=== PATIENT | male | born 1940 | race African-American/Black ===

== ENCOUNTER 2016-07-20 16:15 | Inpatient (IN) | payer MEDICARE, MEDICAID ==
[~2016-07-20] VITALS: Ht 175.3 cm; Wt 82.6 kg
[~2016-07-20 16:15] MED LIST: ALBUTEROL INH; ASPI-1035 PO; DOCU250C69 PO; ENAL5TAB PO; FOLI-43 PO; HYDR-523 PO; IPRATROPIUM INH; KEPPSOL PO; TYLENOL PO; [UNRECOGNIZED DRUG - OTHER] PO
[2016-07-20] MEDS ORDERED: LORA0.5T2 PO (18:07)
[2016-07-20] MEDS ORDERED: CRANBERRY (18:07)
[2016-07-20] MEDS ORDERED: CLON0.1T PO (18:07)
[2016-07-20] MEDS ORDERED: BISA-81 PO (18:07)
[2016-07-20] MEDS ORDERED: SODIUM CHLORIDE 0.9% 1,000 ML IV ONE (18:27)
[2016-07-20] MEDS ORDERED: PANTOPRAZOLE SODIUM 40 MG/VIAL IV STA (18:27)
[2016-07-20] MEDS ORDERED: LORAZEPAM 2MG/ML CPJ IV ONE ×2 (19:00→20:30)
[2016-07-20 19:05] LABS: BASOPHILS % 0.4 % (0.0-2.0); EOSINOPHILS % 0.7 % (0.0-5.0); HEMATOCRIT. 40.5 % (42.0-52.0); HEMOGLOBIN. 13.5 g/dL (14.0-18.0); LYMPHOCYTES % 18.9 % (20.0-50.0); MEAN CORPUSCULAR HEMOGLOBIN 31.2 pg (28.0-32.0); MEAN CORPUSCULAR HGB CONC 33.2 g/dL (31.0-37.0); MEAN CORPUSCULAR VOLUME 93.9 fL (80.0-94.0); MEAN PLATELET VOLUME 8.7 fl (7.4-10.4); MONOCYTES % 5.8 % (2.0-8.0); NEUTROPHILS % 74.2 % (40.0-76.0); PLATELET 163 x1000/uL (130-400); RED BLOOD CELL COUNT 4.31 mill/uL (4.7-6.1); RED CELL DISTRIBUTION WIDTH 12.3 % (11.6-14.6); WHITE BLOOD COUNT 9.7 x1000/uL (4.5-11.0)
[2016-07-20 19:13] LABS: INR 1.1; PARTIAL THROMBOPLASTIN TIME 24.7 sec (24.0-34.0); PROTHROMBIN TIME 11.6 sec
[2016-07-20 19:21] LABS: ALANINE AMINOTRANSFERASE 15 IU/L (13-61); ALBUMIN 3.2 g/dL (3.4-5.0); ANION GAP 14; CALCIUM 8.3 mg/dL (8.5-10.1); CARBON DIOXIDE 24 mEq/L (21-32); CHLORIDE 108 mEq/L (98-107); INDEX HEMOLYSI 2 (1-3); INDEX ICTERIC 1 (1-4); INDEX LIPEMIC 1 (1-3); LIPASE 91 IU/L (73-393); TROPONIN I < 0.02 ng/mL (0.00-0.04); UREA NITROGEN BLOOD 26 mg/dL (7-21); eGFR 51 mL/min (>60)
[2016-07-20 20:28] LABS: CLARITY URINE CLEAR (CLEAR); COLOR URINE YELLOW (YELLOW); GLUCOSE URINE NEGATIVE (NEGATIVE); KETONES URINE NEGATIVE (NEGATIVE); LEUKOCYTE ESTERASE URINE NEGATIVE (NEGATIVE); NITRITE URINE NEGATIVE (NEGATIVE); OCCULT BLOOD URINE NEGATIVE (NEGATIVE); PROTEIN URINE 1+ (NEGATIVE); SPECIFIC GRAVITY URINE 1.024 (1.005-1.030); UROBILINOGEN URINE 0.2 E.U./dL (0.2-1.0)
[2016-07-20 20:41] LABS: BACTERIA URINE TRACE; RBC URINE NONE SEEN /hpf (0-2); SQUAMOUS EPITHELIAL CELL URINE RARE /lpf (RARE/1+); WBC URINE NONE SEEN /hpf (0-2)
[2016-07-20 21:20] LABS: LACTIC ACID 2.2 mmol/L (0.4-2.0)
[2016-07-20] MEDS ORDERED: SODIUM CHLORIDE 0.45% 1,000 ML IV SCH (23:46)
[2016-07-21] VITALS (7 sets, daily range): BP systolic 116–198; BP diastolic 73–112
[2016-07-21] MEDS ORDERED: NA PHOS,M-B/NA PHOS,DI-BA ENEMA 118ML PR PRN
[2016-07-21] MEDS ORDERED: HYDROMORPHONE HCL/PF 2MG/ML CPJ IV PRN
[2016-07-21] MEDS ORDERED: DIPHENHYDRAMINE 50MG/ML VIAL IV PRN
[2016-07-21] MEDS ORDERED: LORAZEPAM 2MG/ML CPJ IV PRN
[2016-07-21] MEDS ORDERED: ONDANSETRON HCL 4MG/2ML VIAL IV PRN
[2016-07-21] MEDS ORDERED: GUAIFENESIN 200MG/10ML SUGAR FREE UDC PO PRN
[2016-07-21] MEDS ORDERED: DOCUSATE SODIUM 100MG CAPSULE PO PRN
[2016-07-21] MEDS ORDERED: DEXTROSE 50% WATER 50ML SYRINGE IV PRN (01:15)
[2016-07-21] MEDS ORDERED: HYDROCODONE/ACETAMINOPHEN 5/325MG TABLET PO PRN ×2 (01:30)
[2016-07-21] MEDS ORDERED: ACETAMINOPHEN 325MG TABLET PO PRN ×2 (01:30)
[2016-07-21] MEDS ORDERED: IPRATROPIUM/ALBUTEROL 0.5-3(2.5)MG/3ML NEB HHN PRN (01:30)
[2016-07-21] MEDS ORDERED: DOCUSATE SODIUM 250MG CAPSULE PO PRN (01:30)
[2016-07-21] MEDS ORDERED: MAGNESIUM/ALUMINUM HYDROXIDE/SIMETHICONE 30ML UDC PO PRN ×2 (01:30)
[2016-07-21] MEDS: CLONIDINE 0.1MG TABLET PO PRN ×2 (01:40→12:57)
[2016-07-21] MEDS: BLOOD SUGAR DIAGNOSTIC STRIP TEST SCH ×4 (06:24→21:00)
[2016-07-21] MEDS: INSULIN LISPRO 100 UNITS/ML SUBCUT SCH ×4 (06:24→21:00)
[2016-07-21 07:03] LABS: BASOPHILS % 0.6 % (0.0-2.0); EOSINOPHILS % 3.7 % (0.0-5.0); HEMATOCRIT. 35.1 % (42.0-52.0); HEMOGLOBIN. 11.3 g/dL (14.0-18.0); LYMPHOCYTES % 29.9 % (20.0-50.0); MEAN CORPUSCULAR HEMOGLOBIN 30.5 pg (28.0-32.0); MEAN CORPUSCULAR HGB CONC 32.3 g/dL (31.0-37.0); MEAN CORPUSCULAR VOLUME 94.2 fL (80.0-94.0); MEAN PLATELET VOLUME 9.1 fl (7.4-10.4); MONOCYTES % 10.6 % (2.0-8.0); NEUTROPHILS % 55.2 % (40.0-76.0); PLATELET 155 x1000/uL (130-400); RED BLOOD CELL COUNT 3.72 mill/uL (4.7-6.1); RED CELL DISTRIBUTION WIDTH 12.2 % (11.6-14.6); WHITE BLOOD COUNT 5.6 x1000/uL (4.5-11.0)
[2016-07-21 08:05] LABS: ALANINE AMINOTRANSFERASE 11 IU/L (13-61); ALBUMIN 2.8 g/dL (3.4-5.0); ANION GAP 9; CALCIUM 7.9 mg/dL (8.5-10.1); CARBON DIOXIDE 27 mEq/L (21-32); CHLORIDE 113 mEq/L (98-107); INDEX HEMOLYSI 1 (1-3); INDEX ICTERIC 1 (1-4); INDEX LIPEMIC 1 (1-3); LDL CHOLESTEROL 116 mg/dL (5-100); TRIGLYCERIDE 66 mg/dL (0-150); UREA NITROGEN BLOOD 21 mg/dL (7-21)
[2016-07-21 08:06] LABS: HDL CHOLESTEROL 50 mg/dL (40-59); eGFR 55 mL/min (>60)
[2016-07-21] MEDS: ASPIRIN 81MG EC TABLET PO SCH (09:00)
[2016-07-21] MEDS: FOLIC ACID 1MG TABLET PO SCH (09:00)
[2016-07-21] MEDS: LEVETIRACETAM 500MG/5ML CUP PO SCH ×2 (09:00→17:00)
[2016-07-21] MEDS: LORAZEPAM 2MG/ML CPJ IV PRN ×2 (10:48→15:02)
[2016-07-21] MEDS: SODIUM CHLORIDE 0.45% 1,000 ML IV SCH ×2 (11:23→21:07)
[2016-07-21] MEDS: ENALAPRIL 5MG TABLET PO SCH (12:56)
[2016-07-21 14:58] LABS: INDEX HEMOLYSI 1 (1-3); INDEX ICTERIC 1 (1-4); INDEX LIPEMIC 1 (1-3); IRON 74 ug/dL (50-175); TOTAL IRON BINDING CAPACITY 211 ug/dL (250-450)
[2016-07-21] MEDS: PANTOPRAZOLE SODIUM 40 MG/VIAL IV SCH ×2 (15:08→20:56)
[2016-07-21 15:13] LABS: INDEX HEMOLYSI 1 (1-3)
[2016-07-21 15:28] LABS: VITAMIN B12 SERUM 523 pg/mL (211-911)
[2016-07-21] MEDS ORDERED: NON FORMULARY PATIENT HOME MED EA XX SCH (15:30)
[2016-07-21] MEDS: CLONIDINE 0.1MG TABLET PO SCH (18:03)
[2016-07-21] MEDS ORDERED: CLONIDINE HCL 0.3MG/24HR PATCH TOP SCH (19:00)
[2016-07-21 19:32] LABS: FERRITIN 331 ng/mL (22-322)
[2016-07-21 19:44] LABS: HEPATITIS B SURFACE ANTIGEN NEGATIVE
[2016-07-21 20:11] LABS: HEPATITIS C VIR.AB 0.16 INDEXVAL (0.00-0.80)
[2016-07-21 20:12] LABS: HEPATITIS B CORE AB IGM NEGATIVE
[2016-07-21 20:13] LABS: HEPATITIS A AB IGM NEGATIVE (NEGATIVE)
[2016-07-21] MEDS: HALOPERIDOL LACTATE 5MG/ML VIAL IM PRN (23:11)
[2016-07-22] VITALS: BP 127/83
[2016-07-22 04:00] VITALS: BP 150/95
[2016-07-22] MEDS: LORAZEPAM 2MG/ML CPJ IV PRN (04:50)
[2016-07-22] MEDS: INSULIN LISPRO 100 UNITS/ML SUBCUT SCH ×3 (06:35→20:07)
[2016-07-22] MEDS: BLOOD SUGAR DIAGNOSTIC STRIP TEST SCH ×4 (06:35→20:07)
[2016-07-22 08:00] VITALS: BP 144/84
[2016-07-22] MEDS: ASPIRIN 81MG EC TABLET PO SCH (09:00)
[2016-07-22] MEDS: LEVETIRACETAM 500MG/5ML CUP PO SCH ×2 (09:00→17:00)
[2016-07-22] MEDS: ENALAPRIL 5MG TABLET PO SCH (09:00)
[2016-07-22] MEDS: FOLIC ACID 1MG TABLET PO SCH (09:00)
[2016-07-22] MEDS: PANTOPRAZOLE SODIUM 40 MG/VIAL IV SCH ×2 (10:27→20:06)
[2016-07-22 12:00] VITALS: BP 132/87
[2016-07-22 12:01] LABS: BASOPHILS % 0.7 % (0.0-2.0); EOSINOPHILS % 3.2 % (0.0-5.0); HEMATOCRIT. 37.8 % (42.0-52.0); HEMOGLOBIN. 12.3 g/dL (14.0-18.0); LYMPHOCYTES % 31.3 % (20.0-50.0); MEAN CORPUSCULAR HGB CONC 32.5 g/dL (31.0-37.0); MEAN CORPUSCULAR VOLUME 95.2 fL (80.0-94.0); MEAN PLATELET VOLUME 8.7 fl (7.4-10.4); MONOCYTES % 11.6 % (2.0-8.0); NEUTROPHILS % 53.2 % (40.0-76.0); PLATELET 133 x1000/uL (130-400); RED BLOOD CELL COUNT 3.98 mill/uL (4.7-6.1); RED CELL DISTRIBUTION WIDTH 12.1 % (11.6-14.6)
[2016-07-22 12:25] LABS: ALBUMIN 2.8 g/dL (3.4-5.0); BILIRUBIN DIRECT 0.2 mg/dL (0.0-0.2); CALCIUM 8.3 mg/dL (8.5-10.1); PHOSPHORUS 2.3 mg/dL (2.5-4.9)
[2016-07-22 12:27] LABS: THYROID STIMULATING HORMONE 2.1 uIU/mL (0.36-3.74)
[2016-07-22] MEDS: SODIUM CHLORIDE 0.45% 1,000 ML IV SCH ×2 (14:17→18:07)
[2016-07-22 16:00] VITALS: BP 186/79
[2016-07-22] MEDS: HALOPERIDOL LACTATE 5MG/ML VIAL IM PRN (16:36)
[2016-07-22] MEDS: CLONIDINE 0.1MG TABLET PO SCH (17:00)
[2016-07-22 20:00] VITALS: BP 173/96
[2016-07-22] MEDS: CLONIDINE 0.1MG TABLET PO PRN (20:06)
[2016-07-23] VITALS: BP 122/77
[2016-07-23] MEDS: SODIUM CHLORIDE 0.45% 1,000 ML IV SCH ×3 (01:38→23:02)
[2016-07-23 04:00] VITALS: BP 177/94
[2016-07-23] MEDS: CLONIDINE 0.1MG TABLET PO PRN (04:25)
[2016-07-23] MEDS: INSULIN LISPRO 100 UNITS/ML SUBCUT SCH ×4 (05:53→20:19)
[2016-07-23] MEDS: BLOOD SUGAR DIAGNOSTIC STRIP TEST SCH ×4 (05:53→20:19)
[2016-07-23 05:54] LABS: BASOPHILS % 0.3 % (0.0-2.0); HEMATOCRIT. 38.3 % (42.0-52.0); HEMOGLOBIN. 12.5 g/dL (14.0-18.0); LYMPHOCYTES % 11.4 % (20.0-50.0); MEAN CORPUSCULAR HGB CONC 32.5 g/dL (31.0-37.0); MEAN CORPUSCULAR VOLUME 95.2 fL (80.0-94.0); MONOCYTES % 7.3 % (2.0-8.0); PLATELET 129 x1000/uL (130-400); RED BLOOD CELL COUNT 4.02 mill/uL (4.7-6.1); RED CELL DISTRIBUTION WIDTH 12.1 % (11.6-14.6); WHITE BLOOD COUNT 9.8 x1000/uL (4.5-11.0)
[2016-07-23 06:29] LABS: CALCIUM 8.2 mg/dL (8.5-10.1)
[2016-07-23 08:00] VITALS: BP 169/97
[2016-07-23] MEDS: LEVETIRACETAM 500MG/5ML CUP PO SCH ×2 (10:41→17:00)
[2016-07-23] MEDS: ASPIRIN 81MG EC TABLET PO SCH (10:41)
[2016-07-23] MEDS: FOLIC ACID 1MG TABLET PO SCH (10:41)
[2016-07-23] MEDS: PANTOPRAZOLE SODIUM 40 MG/VIAL IV SCH ×2 (10:41→20:58)
[2016-07-23] MEDS: ENALAPRIL 5MG TABLET PO SCH (10:41)
[2016-07-23 12:00] VITALS: BP 141/92
[2016-07-23] MEDS: LORAZEPAM 2MG/ML CPJ IV PRN (15:38)
[2016-07-23 16:00] VITALS: BP 155/97
[2016-07-23] MEDS: CLONIDINE 0.1MG TABLET PO SCH (17:00)
[2016-07-23 20:00] VITALS: BP 132/82
[2016-07-24] VITALS: BP 125/90
[2016-07-24 04:00] VITALS: BP 124/87
[2016-07-24] MEDS: BLOOD SUGAR DIAGNOSTIC STRIP TEST SCH ×2 (06:04→11:33)
[2016-07-24] MEDS: INSULIN LISPRO 100 UNITS/ML SUBCUT SCH ×2 (06:16→11:33)
[2016-07-24 08:00] VITALS: BP_SYST 119; BP_SYST 127; BP_DIAS 62; BP_DIAS 85
[2016-07-24] MEDS: ASPIRIN 81MG EC TABLET PO SCH (09:00)
[2016-07-24] MEDS: LEVETIRACETAM 500MG/5ML CUP PO SCH (09:00)
[2016-07-24] MEDS: ENALAPRIL 5MG TABLET PO SCH (09:00)
[2016-07-24] MEDS: FOLIC ACID 1MG TABLET PO SCH (09:00)
[2016-07-24] MEDS: PANTOPRAZOLE SODIUM 40 MG/VIAL IV SCH (10:04)
[2016-07-24] MEDS: SODIUM CHLORIDE 0.45% 1,000 ML IV SCH (10:04)
[2016-07-24] MEDS: LORAZEPAM 2MG/ML CPJ IV PRN (10:05)
[2016-07-24 12:00] VITALS: BP 124/94
[2016-07-24] MEDS: HALOPERIDOL LACTATE 5MG/ML VIAL IM PRN (14:32)
[2016-07-24 15:50] VITALS: BP 124/94
[2016-07-24 16:00] VITALS: BP 159/93
== END 2016-07-24 17:00 | DRG 377 ==
LOC: ER 16:15 → 5WST 20:47
PROVIDERS: ADMIT Internal Medicine; ATTEND Internal Medicine
DX: K92.2 Gastrointestinal hemorrhage, unspecified (principal); G93.41 Metabolic encephalopathy; E46 Unspecified protein-calorie malnutrition; E87.2 Acidosis; J84.9 Interstitial pulmonary disease, unspecified; J98.11 Atelectasis; R17 Unspecified jaundice; N17.9 Acute kidney failure, unspecified; E86.0 Dehydration; E11.21 Type 2 diabetes mellitus with diabetic nephropathy; K29.70 Gastritis, unspecified, without bleeding; D64.9 Anemia, unspecified; D72.821 Monocytosis (symptomatic); E11.22 Type 2 diabetes mellitus with diabetic chronic kidney disease; E78.00 Pure hypercholesterolemia, unspecified; E78.5 Hyperlipidemia, unspecified; F41.9 Anxiety disorder, unspecified; I13.10 Hypertensive heart and chronic kidney disease without heart failure, with stage 1 through stage 4 chronic kidney disease, or unspecified chronic kidney disease; F03.90 Unspecified dementia, unspecified severity, without behavioral disturbance, psychotic disturbance, mood disturbance, and anxiety; G40.909 Epilepsy, unspecified, not intractable, without status epilepticus; I25.10 Atherosclerotic heart disease of native coronary artery without angina pectoris; I48.91 Unspecified atrial fibrillation; J44.9 Chronic obstructive pulmonary disease, unspecified; N18.9 Chronic kidney disease, unspecified; Z82.49 Family history of ischemic heart disease and other diseases of the circulatory system; Z86.711 Personal history of pulmonary embolism; Z86.73 Personal history of transient ischemic attack (TIA), and cerebral infarction without residual deficits; Z87.891 Personal history of nicotine dependence; Z93.1 Gastrostomy status; Z68.26 Body mass index [BMI] 26.0-26.9, adult; Z79.82 Long term (current) use of aspirin; Z79.899 Other long term (current) drug therapy; Z74.01 Bed confinement status
CPT/HCPCS: 36415; 71010; 74176; 76705; 80048; 80053; 80061; 80076; 81001; 82607; 82728; 82746; 82962; 83540; 83550; 83605; 83690; 83735; 84100; 84443; 84484; 85025; 85610; 85730; 86705; 86709; 86803; 86850; 86900; 87340; 93005; 96361; 96374; 96375; 96376; 99285; A6261; C1893; C9113; J1630; J1815; J2060; J7030